=== PATIENT | female | born 1995 | race African-American/Black ===

== ENCOUNTER 2018-03-11 09:58 | Outpatient (CLI) | payer OTHER ==
--- NOTE | 2018-03-11 12:53 | ULT ---
TRANSABDOMINAL AND TRANSVAGINAL PELVIS ULTRASOUND: INDICATIONS: Concern for blighted ovum. FINDINGS: Grayscale, color Doppler and spectral Doppler was obtained. The uterus measures 10.2 x 4.2 x 4.2 cm. There is an intrauterine gestational sac and yolk sac ident ified. No pole is identified. The gestational age based on gestational sac size is 7 weeks 2 days. Estimated due date is 10/26/2018. The yolk sac measures 5.6 mm. The right ovary measures 3.1 x 2.5 x 2 cm. The left ovary measures 4.0 x 2.2 x 2.1 cm. There is a f ollicular cyst in the left ovary, measuring 1.6 cm. No free fluid is identified. There is normal flow to both ovaries. IMPRESSION: 1. Intrauterine gestational sac and yolk sac identified. No gestational pole is identified. The yolk sac is larger than expected for age, measuring up to 5.6 mm. Findings can be seen anembryon ic . Recommend correlation with the patient's beta hCG. Recommend follow-up clinical exami nation and sonographic evaluation. 2. Left ovarian follicular cyst. POS: [facility]
== END 2018-03-11 09:59 | disposition home or self-care (01) ==
LOC: BICULT 09:58
PROVIDERS: ATTEND Nurse Practitioner
DX: O02.0 Blighted ovum and nonhydatidiform mole (principal); O34.81 Maternal care for other abnormalities of pelvic organs, first trimester; N83.02 Follicular cyst of left ovary; Z3A.01 Less than 8 weeks gestation of pregnancy
CPT/HCPCS: 76856

== ENCOUNTER 2018-08-15 12:06 | Emergency (ER) | payer BC, OTHER ==
[2018-08-15] MEDS ORDERED: Albuterol Sulfate 2.5 mg/0.5 ml Neb ONE ×2 (12:32)
[2018-08-15] MEDS ORDERED: methylPREDNISolone Sod Succ/PF 125 MG/2 ML VIAL ONE (13:09)
--- NOTE | 2018-08-15 13:51 | RAD ---
PORTABLE CHEST: DATE: 08/15/2018. PROVIDED CLINICAL HISTORY: Shortness of breath. FINDINGS: No comparisons. Cardiac and mediastinal silhouette is within normal limits. Lungs appear clear. No pleural fluid or pneumothorax apparent. IMPRESSION: No evidence for an acute cardiopulmonary process. POS: [facility]
== END 2018-08-15 14:33 | disposition home or self-care (01) ==
LOC: ERS 12:06
DX: J45.901 Unspecified asthma with (acute) exacerbation (principal)
CPT/HCPCS: 71045; 96374; J2930; J7611